=== PATIENT | female | born 1950 | race Caucasian/White ===

== ENCOUNTER 2020-07-08 19:11 | Emergency (ER) | payer MEDICARE, SELFPAY ==
[~2020-07-08 19:11] MED LIST: ASPIRIN CHEWABL81 MG PO; HYDROCHLOROTHIA25 MG PO; LIPITOR TAB 1010 MG PO; LISINOPRIL40 MG PO; LOPRESSOR50 MG PO; METFORMIN HCL500 M1 PO; METFORMIN HCL500 M2 PO; MULTIVITAMINS1 EAC1 PO; NEURONTIN 300300 MG PO; NITROSTAT0.4 MG SL; NORCO 5-325 TA1 EACH PO; RELAFEN 750 MG750 MG PO; TENORMIN50 MG PO; ZANTAC150 MG PO
[2020-07-08 20:56] LABS: HEMOGLOBIN 12.4 gm/dl (12.3-15.3); RED BLOOD COUNT 4.07 M/UL (4.00-5.10); WHITE BLOOD COUNT 6.5 K/UL (4.5-11.0)
[2020-07-08 21:50] LABS: BUN/CREATININE RATIO 21 (0-10)
[2020-07-08] MEDS ORDERED: IPRAT-ALBUT 0.5-3 ML INH (21:59)
[2020-07-08] MEDS ORDERED: OMNICEF 300 MG300 MG PO (21:59)
== END 2020-07-08 23:48 | disposition home or self-care (01) ==
LOC: ER1 19:11
PROVIDERS: Emergency Medicine
DX: U07.1 COVID-19 (principal); I10 Essential (primary) hypertension; E11.9 Type 2 diabetes mellitus without complications
CPT/HCPCS: 71045; 80053; 82550; 82553; 83874; 83880; 84484; 85025; 93005; 96374; 99285; J1885

== ENCOUNTER 2020-08-14 15:49 | Observation (INO) | payer MEDICARE ==
[~2020-08-14] VITALS: Ht 152.4 cm; Wt 81.6 kg
[~2020-08-14 15:49] MED LIST changes: +IPRAT-ALBUT 0.5-3 ML INH; +OMNICEF 300 MG300 MG PO
[2020-08-14 19:42] LABS: HEMOGLOBIN 13.3 gm/dl (12.3-15.3); RED BLOOD COUNT 4.22 M/UL (4.00-5.10)
[2020-08-14 20:17] LABS: BUN/CREATININE RATIO 17 (0-10)
[2020-08-15] MEDS ORDERED: TELMISARTAN40 MG PO (00:12)
[2020-08-15] MEDS ORDERED: OMEPRAZOLE20 MG PO (00:16)
[2020-08-15] MEDS ORDERED: FLONASE ALLER15.8 ML (00:17)
[2020-08-15] MEDS ORDERED: CELEBREX100 MG PO (00:18)
[2020-08-15] MEDS ORDERED: DAILY VITAMIN1 EAC2 PO (00:19)
--- NOTE | 2020-08-15 11:29 | NUR ---
INSTRUCTED IMPORTANCE TO FOLLOW UP WITH MD SCHEDULED. IF ANY CHEST PAIN GO TO E.R. PATIENT AND FAMILY VERBALIZED UNDERSTANDING. BERTA MEJIA R.N.
== END 2020-08-15 12:25 | disposition home or self-care (01) ==
LOC: ER1 15:49 → MED SURG 4 21:40 → CDU 21:40 → MED SURG 4 08-15 03:01
PROVIDERS: Physician Assistant; ADMIT Internal Medicine
DX: R07.89 Other chest pain (principal); E11.9 Type 2 diabetes mellitus without complications; I10 Essential (primary) hypertension; E78.5 Hyperlipidemia, unspecified; M19.90 Unspecified osteoarthritis, unspecified site; K21.9 Gastro-esophageal reflux disease without esophagitis; Z95.5 Presence of coronary angioplasty implant and graft; Z88.5 Allergy status to narcotic agent; Z79.84 Long term (current) use of oral hypoglycemic drugs; Z20.822 Contact with and (suspected) exposure to COVID-19; Z86.16 Personal history of COVID-19
CPT/HCPCS: 36415; 71045; 80053; 80061; 81001; 82550; 82553; 83874; 83880; 84484; 85025; 85379; 85610; 85730; 93005; 96374; 96376; 99285; G0378; J1885; U0002

== ENCOUNTER → 2020-08-16 | Outpatient (CLI) | payer MEDICARE ==
[~2020-08-16] MED LIST changes: +CELEBREX100 MG PO; +DAILY VITAMIN1 EAC2 PO; +FLONASE ALLER15.8 ML; +OMEPRAZOLE20 MG PO; +TELMISARTAN40 MG PO
== END ==
LOC: RAD 13:04
DX: R07.89 Other chest pain (principal); M54.9 Dorsalgia, unspecified; R07.81 Pleurodynia; J98.11 Atelectasis
CPT/HCPCS: 71046; 71100; 72072

== ENCOUNTER → 2020-10-30 | Outpatient (CLI) | payer MEDICARE | LOC: RAD 14:25 | DX: M25.561 Pain in right knee (principal); M25.562 Pain in left knee; M54.2 Cervicalgia; M54.5 Low back pain; G89.29 Other chronic pain; S22.080A Wedge compression fracture of T11-T12 vertebra, initial encounter for closed fracture; M17.12 Unilateral primary osteoarthritis, left knee; M85.88 Other specified disorders of bone density and structure, other site; M50.30 Other cervical disc degeneration, unspecified cervical region; M47.816 Spondylosis without myelopathy or radiculopathy, lumbar region; M47.812 Spondylosis without myelopathy or radiculopathy, cervical region; M48.02 Spinal stenosis, cervical region; Z96.651 Presence of right artificial knee joint; X58.XXXA Exposure to other specified factors, initial encounter | CPT/HCPCS: 72040; 72100; 73562 ==

== ENCOUNTER → 2021-06-03 | Day surgery (SDC) | payer MEDICARE ==
[~2021-06-03] MED LIST changes: +ALBUTEROL1.25 MG/3 INH; +CELEBREX 100MG100 MG PO; +FOLIC ACID1 MG PO; +FOSAMAX70 MG PO; +MEDROL TAB 4 MG4 MG PO; +SINGULAIR10 MG PO; +TIZANIDINE HCL2 M1 PO; +ZOCOR10 MG PO
== END | disposition home or self-care (01) ==
LOC: OR 06:19
PROVIDERS: Internal Medicine Gastroenterology
PROC: 0DBH8ZX Excision of Cecum, Via Natural or Artificial Opening Endoscopic, Diagnostic (ICD-10-PCS; 2021-06-03)
PROC: 0DB68ZX Excision of Stomach, Via Natural or Artificial Opening Endoscopic, Diagnostic (ICD-10-PCS; principal; 2021-06-03 08:15)
PROC: 0DB78ZX Excision of Stomach, Pylorus, Via Natural or Artificial Opening Endoscopic, Diagnostic (ICD-10-PCS; 2021-06-03 08:15)
DX: Z12.11 Encounter for screening for malignant neoplasm of colon (principal); K31.89 Other diseases of stomach and duodenum; K29.70 Gastritis, unspecified, without bleeding; K25.9 Gastric ulcer, unspecified as acute or chronic, without hemorrhage or perforation; K64.1 Second degree hemorrhoids; K64.4 Residual hemorrhoidal skin tags; B37.81 Candidal esophagitis; K21.00 Gastro-esophageal reflux disease with esophagitis, without bleeding; E78.5 Hyperlipidemia, unspecified; D12.0 Benign neoplasm of cecum; M19.90 Unspecified osteoarthritis, unspecified site; E78.00 Pure hypercholesterolemia, unspecified; E11.9 Type 2 diabetes mellitus without complications; I10 Essential (primary) hypertension; E55.9 Vitamin D deficiency, unspecified; G47.00 Insomnia, unspecified; M79.7 Fibromyalgia; E66.9 Obesity, unspecified; Z68.41 Body mass index [BMI] 40.0-44.9, adult; Z20.822 Contact with and (suspected) exposure to COVID-19; Z86.010 Personal history of colon polyps; Z88.1 Allergy status to other antibiotic agents; Z79.1 Long term (current) use of non-steroidal anti-inflammatories (NSAID); Z79.52 Long term (current) use of systemic steroids; Z79.82 Long term (current) use of aspirin; Z79.84 Long term (current) use of oral hypoglycemic drugs; Z79.899 Other long term (current) drug therapy; Z90.49 Acquired absence of other specified parts of digestive tract; Z88.5 Allergy status to narcotic agent
CPT/HCPCS: 82962; J2704; J7040

== ENCOUNTER → 2021-06-09 | Outpatient (CLI) | payer MEDICARE | LOC: EXRD 15:21 | DX: M25.552 Pain in left hip (principal) | CPT/HCPCS: 73502 ==

== ENCOUNTER 2021-07-05 07:38 | Inpatient (IN) | payer MEDICARE ==
[~2021-07-05] VITALS: Ht 152.4 cm; Wt 86.2 kg
[~2021-07-05 07:38] MED LIST changes: -SINGULAIR10 MG PO; -TELMISARTAN40 MG PO; +TELMISARTAN80 MG PO; -TIZANIDINE HCL2 M1 PO
[2021-07-05] MEDS ORDERED: TIZANIDINE HCL2 MG PO (07:45)
[2021-07-05] MEDS ORDERED: SINGULAIR10 MG PO (07:52)
[2021-07-05 08:31] LABS: HEMOGLOBIN 11.1 gm/dl (12.3-15.3); RED BLOOD COUNT 3.5 M/UL (4.00-5.10); WHITE BLOOD COUNT 9.4 K/UL (4.5-11.0)
[2021-07-05 08:59] LABS: BUN/CREATININE RATIO 10 (0-10)
[2021-07-05] MEDS ORDERED: BIOTIN10 MG PO (12:21)
[2021-07-05] MEDS ORDERED: FLUCONAZOLE100 MG PO (12:21)
[2021-07-05] MEDS ORDERED: CLARITIN10 M2 PO (20:53)
[2021-07-06 04:32] LABS: HEMOGLOBIN 11.5 gm/dl (12.3-15.3); RED BLOOD COUNT 3.63 M/UL (4.00-5.10); WHITE BLOOD COUNT 9.9 K/UL (4.5-11.0)
[2021-07-06 05:42] LABS: BUN/CREATININE RATIO 11 (0-10)
[2021-07-07 06:54] LABS: RED BLOOD COUNT 3.73 M/UL (4.00-5.10); WHITE BLOOD COUNT 8.8 K/UL (4.5-11.0)
[2021-07-07 07:23] LABS: BUN/CREATININE RATIO 10 (0-10)
[2021-07-07] MEDS ORDERED: LEVOFLOXACIN500 MG PO (10:27)
[2021-07-07] MEDS ORDERED: PROVENTIL HFA6.7 GM INH (11:18)
--- NOTE | 2021-07-07 12:31 | NUR ---
patient pulse ox 92% room air with ambulation and 94% room air.
== END 2021-07-07 13:59 | disposition home or self-care (01) | DRG 194 ==
LOC: ER1 07:38 → CDU 09:55 → M/S 09:55
PROVIDERS: Emergency Medicine; Physician Assistant; ADMIT Internal Medicine
DX: J18.9 Pneumonia, unspecified organism (principal); B37.81 Candidal esophagitis; E87.6 Hypokalemia; E11.9 Type 2 diabetes mellitus without complications; I10 Essential (primary) hypertension; Z20.822 Contact with and (suspected) exposure to COVID-19; E78.5 Hyperlipidemia, unspecified; Z96.651 Presence of right artificial knee joint; K21.9 Gastro-esophageal reflux disease without esophagitis; M19.90 Unspecified osteoarthritis, unspecified site; Z90.710 Acquired absence of both cervix and uterus; Z90.49 Acquired absence of other specified parts of digestive tract; Z98.890 Other specified postprocedural states; Z88.6 Allergy status to analgesic agent; Z82.49 Family history of ischemic heart disease and other diseases of the circulatory system; Z83.3 Family history of diabetes mellitus
CPT/HCPCS: 0240U; 36415; 36600; 71045; 80048; 80053; 82550; 82553; 82803; 82962; 83735; 83874; 83880; 84132; 84484; 85025; 93005; 99285; J1956; J3475

== ENCOUNTER → 2021-07-24 | Outpatient (CLI) | payer MEDICARE, OTHER ==
[~2021-07-24] MED LIST changes: +BIOTIN10 MG PO; +CLARITIN10 M2 PO; +FLUCONAZOLE100 MG PO; +LEVOFLOXACIN500 MG PO; +PROVENTIL HFA6.7 GM INH; +SINGULAIR10 MG PO; +TIZANIDINE HCL2 MG PO
== END ==
LOC: RAD 14:53
DX: M25.552 Pain in left hip (principal); M79.605 Pain in left leg; M25.512 Pain in left shoulder; M54.50 Low back pain, unspecified; M25.562 Pain in left knee; M25.462 Effusion, left knee
CPT/HCPCS: 72110; 73030; 73502; 73552; 73562; 73590

== ENCOUNTER → 2021-08-25 | Outpatient (CLI) | payer MEDICARE ==
[2021-08-25 17:12] LABS: BUN/CREATININE RATIO 13 (0-10)
== END ==
LOC: LAB 15:35
PROVIDERS: Physician Assistant
DX: E87.6 Hypokalemia (principal); J18.9 Pneumonia, unspecified organism
CPT/HCPCS: 36415; 71046; 80048; 83735

== ENCOUNTER 2021-11-04 19:26 | Emergency (ER) | payer MEDICARE ==
[2021-11-04 20:34] LABS: HEMOGLOBIN 12.5 gm/dl (12.3-15.3); RED BLOOD COUNT 3.99 M/UL (4.00-5.10); WHITE BLOOD COUNT 8.6 K/UL (4.5-11.0)
[2021-11-04 21:00] LABS: BUN/CREATININE RATIO 12 (0-10)
[2021-11-04] MEDS ORDERED: CATAPRES 0.1MG0.1 MG PO (23:43)
== END 2021-11-04 23:52 | disposition home or self-care (01) ==
LOC: ER1 19:26
PROVIDERS: Family Medicine
DX: I10 Essential (primary) hypertension (principal); E11.9 Type 2 diabetes mellitus without complications; Z88.5 Allergy status to narcotic agent; Z88.1 Allergy status to other antibiotic agents
CPT/HCPCS: 71045; 80053; 82550; 82553; 84484; 85025; 93005; 99284

== ENCOUNTER → 2021-12-09 | Outpatient (CLI) | payer MEDICARE ==
[~2021-12-09] MED LIST changes: +CATAPRES 0.1MG0.1 MG PO
== END ==
LOC: ECHO 11:15
DX: I11.9 Hypertensive heart disease without heart failure (principal); I70.0 Atherosclerosis of aorta
CPT/HCPCS: ECHO; 93306

== ENCOUNTER 2022-01-23 02:37 | Emergency (ER) | payer MEDICARE ==
[2022-01-23] MEDS ORDERED: HYDROCODON-ACE1 EAC4 PO (05:56)
== END 2022-01-23 05:58 | disposition home or self-care (01) ==
LOC: ER1 02:37
DX: S63.501A Unspecified sprain of right wrist, initial encounter (principal); S50.311A Abrasion of right elbow, initial encounter; S80.211A Abrasion, right knee, initial encounter; I11.9 Hypertensive heart disease without heart failure; E11.9 Type 2 diabetes mellitus without complications; Z88.5 Allergy status to narcotic agent; W01.0XXA Fall on same level from slipping, tripping and stumbling without subsequent striking against object, initial encounter
CPT/HCPCS: 73080; 73110; 73562; 99283